=== PATIENT | male | born 1970 | race Caucasian/White ===

== ENCOUNTER 2020-03-15 13:00 | Emergency (ER) | payer SELFPAY ==
[2020-03-15 13:11] VITALS: BP 148/93
--- NOTE | 2020-03-15 14:14 | ED Physician Documentation ---
History of Present Illness - Stated complaint Stated Complaint: BILAT ARM NUMBNESS - Chief complaint Chief Complaint: Ext Problem - Additonal information Additional information: 49-year-old male presents to the emergency department with chief complaint of bilateral hand numbness left greater than right. He reports that this is been an ongoing problem for 2 years. 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 He finds that his hand is often numb in the morning when he wakes up. Though it does improve with movement. But after long days work it is worse. He is has taken no medication for this. He denies neck pain or shoulder pain. No falls or trauma. No extremity swelling. No fevers or erythema. Review of Systems Constitutional: denies: Fever, Chills Cardiac: denies: Chest pain / pressure, Palpitations Respiratory: denies: Dyspnea, Cough GI: denies: Abdominal Pain : denies: Dysuria Skin: denies: Rash, Lesions Musculoskeletal: reports: Extremity pain Neurologic: denies: Generalized weakness, Focal weakness, Numbness (Bilateral hands left greater than right), Difficulty speaking, Near syncope, Syncope, Seizure, Confused PD PAST MEDICAL HISTORY - Present Medications Home Medications: Ambulatory Orders Medication Instructions Recorded Confirmed Ibuprofen [Ibu] 600 mg PO Q8HR PRN #30 tablet 03/15/20 PD ED PE EXPANDED - Neck Neck: Supple w/out meningeal sx, Other (Full range of motion in all planes. No pain with axial loading.). No: Stiff neck, Brudzinki's, Adenopathy, Soft tissue TTP, Bony TTP - Extremities Extremities: Right wrist (Positive Phalen's peer), Left wrist (Positive Phalen's.), Other (Full range of motion of shoulders elbow and wrists and hand against resistance. Distal radial pulse 2+.) Results - Vitals Vitals: Vital Signs - 24 hr 03/15/20 13:07 Temperature 36.5 C Heart Rate 84 Respiratory 16 Rate Blood Pressure 148/93 H O2 Saturation 99 Oxygen O2 Source Room air PD MEDICAL DECISION MAKING - ED course Complexity details: d/w patient ED course: 49-year-old male presents to the emergency department with chief complaint of bilateral hand numbness that has been getting progressively worse over the last 2 years. 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 He has a positive Phalen's on both hands though left is greater than right. I discussed this finding with him and advised that persistence in this occupation will only worsen his symptoms. I have advised that he take ibuprofen to help with discomfort and follow-up with his primary care doctor. An EMG should be completed for definitive diagnosis and treatment. We will given wrist splints to wear at night. Departure - Departure Disposition: 01 Home, Self Care Clinical Impression: Carpal tunnel syndrome on both sides Condition: Stable Record reviewed to determine appropriate education?: Yes Instructions: Carpal Tunnel Syndrome, Carpal Tunnel Syndrome Prevent, ED Carpal Tunnel Prescriptions: Ibuprofen [Ibu] 600 mg PO Q8HR PRN #30 tablet PRN Reason: Pain Comments: [place] your exam is most consistent with carpal tunnel syndrome in both your hands. You should avoid vibratory tasks at work as it will complicate your symptoms. I would advise simple tasks such as painting. Please wear the wrist splints at night. This will prevent you from flexing your wrist and worsening the problem. You need to follow-up with your primary care doctor for this treatment. In the long-term you may need to be referred to a hand specialist to have the compressed nerves released. I have prescribed some ibuprofen to help with discomfort.
== END 2020-03-15 14:44 | disposition home or self-care (01) ==
LOC: ED 13:00
DX: G56.03 Carpal tunnel syndrome, bilateral upper limbs (principal)
CPT/HCPCS: 99282; 99283

== ENCOUNTER 2020-04-13 08:11 | Emergency (ER) | payer SELFPAY ==
[2020-04-13 08:19] VITALS: BP 156/90
[2020-04-13] MEDS ORDERED: DEXAMETHASONE 10 MG/ML VIAL PO STA (08:38)
[2020-04-13] MEDS ORDERED: CHERRY SYRUP 10 ML UDC PO ONE (08:38)
--- NOTE | 2020-04-13 08:41 | ED Physician Documentation ---
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 He has developed significant swelling to both of his hands and is having a hard time gripping with the right hand. He indicates that he has been using the splints at night and this has helped quite a bit. Review of Systems Constitutional: denies: Fever Respiratory: denies: Dyspnea GI: denies: Vomiting Musculoskeletal: reports: Extremity swelling Neurologic: reports: Numbness. denies: Generalized weakness, Focal weakness PD PAST MEDICAL HISTORY - Present Medications Home Medications: Ambulatory Orders Medication Instructions Recorded Confirmed Ibuprofen [Ibu] 600 mg PO Q8HR PRN #30 tablet 03/15/20 - Social History Does the pt smoke?: No Smoking Status: Never smoker PD ED PE NORMAL - Vitals Vital signs reviewed: Yes (hypertensive) - General General: Alert and oriented X 3, No acute distress, Well developed/nourished - HEENT HEENT: Atraumatic, PERRL, EOMI - Respiratory Respiratory: No respiratory distress - Derm Derm: Normal color, Warm and dry, No rash - Extremities Extremities: No deformity, Other (There is mild swelling to the dorsum of both hands worse on the right than the left and there is pain and numbness elicited by tapping on the median nerve. This is present bilaterally.) - Neuro Neuro: Alert and oriented X 3, custom tailor 2-12 intact, No motor deficit, Normal speech Eye Opening: Spontaneous Motor: Obeys Commands Verbal: Oriented GCS Score: 15 - Psych Psych: Normal mood, Normal affect Results - Vitals Vitals: Vital Signs - 24 hr 04/13/20 08:17 Temperature 36.3 C L Heart Rate 95 Respiratory 14 Rate Blood Pressure 156/90 H O2 Saturation 100 Oxygen O2 Source Room air PD MEDICAL DECISION MAKING - ED course Complexity details: reviewed old records, considered differential, d/w patient ED course: 49-year-old male with a history of carpal tunnel syndrome has increased symptoms of hand swelling and numbness with excessive work. He is administered a dose of dexamethasone orally 10 mg and we will give him a note for work for 3 days. Departure - Departure Disposition: 01 Home, Self Care Clinical Impression: Carpal tunnel syndrome on both sides Condition: Stable Instructions: ED Carpal Tunnel Follow-Up: [facility] [Provider Group] Forms: Activity restrictions
== END 2020-04-13 08:52 | disposition home or self-care (01) ==
LOC: ED 08:11
DX: G56.03 Carpal tunnel syndrome, bilateral upper limbs (principal)
CPT/HCPCS: 99282; 99284; A9270